=== PATIENT | male | born 1945 | race Caucasian/White ===

== ENCOUNTER → 2024-05-08 09:56 | Outpatient (BNVA) | payer MEDICARE, OTHER, SELFPAY | PROVIDERS: Visit Provider Internal Medicine | DX: E05.90 Thyrotoxicosis, unspecified without thyrotoxic crisis or storm (principal); E06.3 Autoimmune thyroiditis; I48.91 Unspecified atrial fibrillation; I10 Essential (primary) hypertension; F32.A Depression, unspecified; F41.9 Anxiety disorder, unspecified | CPT/HCPCS: 99204 ==

== ENCOUNTER → 2024-09-01 09:29 | Outpatient (BNVA) | payer MEDICARE, OTHER, SELFPAY | PROVIDERS: PCP Nurse Practitioner Family; Visit Provider Internal Medicine | DX: E06.3 Autoimmune thyroiditis (principal); I10 Essential (primary) hypertension; E05.90 Thyrotoxicosis, unspecified without thyrotoxic crisis or storm | CPT/HCPCS: 99214 ==

== ENCOUNTER 2024-10-20 15:57 | Inpatient (IN) | payer MEDICARE, OTHER, SELFPAY ==
[2024-10-20] VITALS (8 sets, daily range): BP systolic 134–147; BP diastolic 72–76; PULSE 70–80; RESP 14–18; TEMP 36.6–36.8; O2SAT 93–96; BMI 27.3
[2024-10-20 11:15] LABS: Hematocrit 38.0 % (37-53); Hemoglobin 12.90 g/dL (11.27-16.99); Mean Corpuscular HGB Conc 33.9 g/dL (30-55); Mean Corpuscular Hemoglobin 31.2 pg (27-33); Mean Corpuscular Volume 92.0 fl (82-101); Nucleated Red Blood Cells % 0 %; Platelet Count 212 10^3/cmm (157-399); Red Blood Count 4.13 10^6/uL (3.85-5.65); White Blood Count 8.24 10^3/uL (3.29-11.43)
--- NOTE | 2024-10-20 11:21 | ANES.PREANE2 ---
Pre-Anesthetic Assessment Height/Weight: Height 1.93 m Weight 102.058 kg Temp Pulse Resp BP Pulse Ox O2 Del Method 98.3 F 80 18 143/72 96 Room Air 10/20/24 11:08 10/20/24 11:08 10/20/24 11:08 10/20/24 11:08 10/20/24 11:08 10/20/24 11:08 Operation Date: 10/20/24 11:25 Proposed Procedures p Total Thyroidectomy(Bilateral) - David Garcia MD Familial anesthetic complications: None Was Beta Pito taken within 24 hours: N/A Was Clonidine taken within 24 hours: N/A Last intake: Intake Last Liquid Date 10/19/24 Last Liquid Time 23:23 Last Solid Date 10/19/24 Last Solid Time 23:23 Social No alcohol and No tobacco Exam alert, oriented x 3, clear to auscultation bilaterally and regular rate & rhythm Airway Mallampati: Class I Dentition: false CV/HEM Atrial Fibrillation and Coronary Artery Disease sick sinus syndrome w pacemaker and watchman Metabolic Thyroid Disease Anesthetic Plan ASA status: 3 Anesthesia: General Risk of > 500 ml blood loss (7ml/kg in children): No Medications/Allergies Home Medications ?Medication ?Instructions ?Recorded ?Confirmed ?Last Taken ?Type atorvastatin 40 mg tablet 40 mg PO EVERY OTHER DAY 05/08/24 10/20/24 10/19/24 History cyanocobalamin (vitamin B-12) 1,000 mcg IM Q21D 05/08/24 10/19/24 09/30/24 History 1,000 mcg/mL injection solution hydrochlorothiazide 12.5 mg tablet 12.5 mg PO DAILY 05/08/24 10/19/24 10/19/24 History lorazepam 0.5 mg tablet 0.5 mg PO DAILY PRN Anxiety 05/08/24 10/19/24 Unknown History losartan 50 mg tablet 50 mg PO DAILY 05/08/24 10/19/24 10/19/24 History diltiazem HCl 120 mg capsule,24 120 mg PO QPM 06/15/24 10/20/24 10/19/24 20:00 History hr,extended release methimazole 10 mg tablet 20 mg PO QPM 10/19/24 10/20/24 10/19/24 20:00 History sertraline 50 mg tablet 50 mg PO QPM 10/19/24 10/20/24 10/19/24 20:00 History Allergies Allergy/AdvReac Type Severity Reaction Status Date / Time Beta-Blockers Allergy ALGY-Anaphy Verified 10/20/24 10:50 (Beta-Adrenergic Bloc laxis codeine Allergy ADR-Confusi Verified 10/20/24 10:50 on Current Medications Generic Name Dose Route Start Last Admin Trade Name Freq PRN Reason Stop Dose Admin Sodium Chloride 1,000 mls @ 30 mls/hr 10/20/24 10:45 10/20/24 11:20 Sodium Chloride 0.9% IV 10/21/24 10:44 30 mls/hr .Q24H LAKEISHA Administration PFS Anesthesia Social History Smoking and tobacco/nicotine status: former use of tobacco/nicotine Data Anesthesia 10/20/24 11:00 Short CBC 10/20/24 Range/Units 11:00 WBC 8.24 (3.29-11.43) 10^3/uL Hgb 12.90 (11.27-16.99) g/dL Hct 38.0 (37-53) % MCV 92.0 (82-101) fl Plt Count 212 (157-399) 10^3/cmm Neut % (Auto) 68.9 % Neut # (Auto) 5.67 (1.8-7.7) 10^3/uL BMP 10/20/24 11:00 Sodium Cancelled Potassium Cancelled Chloride Cancelled Carbon Dioxide Cancelled BUN Cancelled Creatinine Cancelled Glucose Cancelled Calcium Cancelled
--- NOTE | 2024-10-20 11:29 | W.PM.OPSUD ---
Surgery/Procedure H&P Update DATE OF PROCEDURE: October 20, 2024 DATE H&P PERFORMED: 10/09/24 PLANNED PROCEDURE: Operation Date: 10/20/24 11:25 Proposed Procedures p Total Thyroidectomy(Bilateral) - David Garcia MD
[2024-10-20] MEDS: ceFAZolin 2,000 mg SDV 2000 MG IVP ×2 (11:41→20:32)
[2024-10-20 12:03] LABS: Anion Gap 13.2 (5-19); Blood Urea Nitrogen 31 mg/dL (8-23); Calcium 9.2 mg/dL (8.5-10.5); Carbon Dioxide 25 mmol/L (22-29); Chloride 103 mmol/L (98-107); Glucose 103 mg/dL (65-115); Osmolality Calculated 291 mOsm/kg (285-295); Potassium 4.2 mmol/L (3.5-5.1); Sodium 137 mmol/L (136-145)
[2024-10-20 12:06] LABS: Creatinine Clr Calc Pharmacy 50.0000
[2024-10-20] MEDS: lidocaine-epi 1% 20 mL INJ INJECTION (12:41)
[2024-10-20] MEDS: ceFAZolin 1,000 mg SDV 1000 MG IRRIGATION (12:42)
--- NOTE | 2024-10-20 14:48 | PC.NURSE ---
called and updated patient's regarding surgical progress at 0831
[2024-10-20] MEDS: thrombin 5,000 unit SDV 5000 UNIT XX (15:16)
[2024-10-20] MEDS: neomycin-poly-bacitracin oint 28 gm 1 APPLIC TOPICAL (15:41)
--- NOTE | 2024-10-20 16:01 | P.OP_ITS ---
Operative Report Date of procedure: October 20, 2024 Pre-op diagnosis: Hyperthyroidism Post-op diagnosis: Same Post-op findings: - Friable, inflamed bilateral thyroid lobes with dense bilateral adherence at Arben's ligament - Recurrent laryngeal nerves identified and preserved intact bilaterally - Right upper and two left parathyroid glands identified and preserved - O/W normal thyroid bed exam Procedure done: Total thyroidectomy Implants: None Specimens removed/disposition: Right and Left thyroid lobes Pathology: Right and Left thyroid lobes Surgeon: David Garcia Surgeon: David Garcia MD Brand Marketing Manager: Tanvir Brown Anesthesia: General Estimated blood loss (mL): 50 IV fluids (mL): 1,600 Urine output (mL): 150 Complications: None Findings: - Friable bilateral thyroid lobes - Dense attachment of each thyroid lobe Arben's ligament/RLN entry point - Bilateral Recurrent laryngeal nerves identified and preserved intact - One right and two left parathyroid glands identified and preserved in place - O/W normal surgical thyroid exam Condition: stable Disposition: ICU Brief History: 79 yo wm with a h/o hyperthyroidism who desires surgical therapy. Procedure: The patient was identified in the preoperative holding area and was taken to the operating room where he was placed on the Operating table in the supine position.Anesthesia was obtained with general endotracheal anesthesia after placing the nerve monitoring electrode on the endotracheal tube. A horizontal skin incision was marked out in the suprasternal area and was injected with local anesthesia. The nerve monitor was set up and adjusted and found to be functional. At this point the patient was prepped and draped in the usual sterile fashion. The incision was made with a 15 blade and was carried down through the subcutaneous tissues until the avascular midline was identified. The strap muscles were then in the midline and were retracted off of the thyroid gland. The Blythe retractor was placed in the wound and attention was turned to the thyroid isthmus. The thyroid isthmus was dissected off of the trachea and was divided in the midline with the harmonic scalpel. At this point a circumferential disection began around the right thyroid lobe while retracting the wound laterally. Attention was turned to the inferior pole which was dissected free from the underlying soft tissues in the tracheoesophageal groove. The thyroid gland was then rotated medially. The nerve monitoring hemostat was used to probe the carotid sheath and the vagus nerve was stimulated - the nerve monitoring circuit was found to be complete. The inferior pole and middle thyroid vein and vessels were dissected free from the surrounding tissues and ligated with ligaclips. As this dissection proceeded the inferior parathyroid gland on the right was identified and preserved in the thyrothymic horn although was not directly visualized. The dissection proceeded superiorly until the recurrent laryngeal nerve was identified both visually and electrically. The recurrent laryngeal nerve was preserved in place. The upper parathyroid was identified just deep and lateral to the entry point of the recurrent laryngeal nerve into the larynx. There was a dense attachment of the thyroid gland to Henning's ligament in the area of the entry point of the recurrent laryngeal nerve. A small cuff of thyroid tissue was left at this entry point to preserve the recurrent laryngeal nerve. The dissection proceeded superiorly. The superior pole vessels were individually dissected free and ligated with ligaclips. The right thyroid lobe was then retracted and removed from the thyroid bed with blunt dissection and bipolar cautery. The right thyroid bed was then inspected for hemostasis which was achieved with careful bipolar cautery. The wound was irrigated with copious amount of normal saline that was warm. Attention was then turned to the left thyroid bed where an identical procedure was performed after confirming that the recurrent laryngeal nerve was intact and at least 1 functional parathyroid had been identified and preserved in place. Once both sides were complete a drain was placed in the wound and the wound was closed with interrupted 4 Monocryl suture subcu and running 5-0 Prolene on skin. The wound was then cleaned and covered with triple antibiotic ointment. The procedure was then terminated and control of the patient was returned to anesthesia where he underwent uneventful reversal of anesthesia and extubation and was taken to the intensive care unit in stable condition. There were no operative or anesthetic complications.
[2024-10-20] MEDS: cyanocobalamin 1,000 mcg/mL SDV 1000 MCG IM (17:17)
[2024-10-20] MEDS: dilTIAZem ER (24HR) 120 mg Capsule PO (17:17)
[2024-10-20] MEDS: HYDROcodone-acetaminophen 5-325 mg Tablet 1 TAB PO ×2 (17:17→23:30)
--- NOTE | 2024-10-20 22:46 | PC.NURSE ---
Dr Garcia contacted Dr Garcia requested to be contacted with patient's PTH and calcium lab value, this nurse called to inform him these lab values would not be available until closer to midnight due to lab needing the reagant for the tests. Dr. Garcia verbalized understanding and also gave verbal order at this time for patient to be on a regular diet as well as Calcium with Vitamin D 600mg four times a day.
[2024-10-21 02:34] LABS: Calcium 8.5 mg/dL (8.5-10.5)
--- NOTE | 2024-10-21 04:56 | P.PN_ITS ---
Subjective 2 Subjective: 79 yo wm who is POD #1 s/p total thyroid ectomy for hyperthyroidism who is doing well by his report. The patient c/o moderate sore throat, but is able to swallow well. He has no other c/o. Medications: Reviewed: Yes Vitals/I&O/Wt Last Vital Signs Temp 97.9 F 10/20/24 16:30 Pulse 77 10/20/24 22:00 Resp 14 10/20/24 16:35 BP 134/75 10/20/24 16:35 Pulse Ox 93 10/20/24 16:35 O2 Del Method Room Air 10/20/24 16:35 10/20/24 10/20/24 10/21/24 14:59 22:59 06:59 Intake Total 1000 / 1000 33.333 / 1033.333 781.25 / 1814.583 Output Total 840 / 840 Balance 1000 / 1000 -806.667 / 193.333 781.25 / 974.583 Weight last 48 hrs Weight 111.584 kg Weight 102.058 kg Physical Exam 2 Const: COMMON NORMALS: no acute distress and patient oriented x3 GENERAL APPEARANCE: cooperative ORIENTATION/CONSCIOUSNESS: Yes oriented to person, Yes oriented to place and Yes oriented to time HENMT: COMMON NORMALS: normocephalic, atraumatic and Normal external nose present HEAD & SCALP: normocephalic and atraumatic FACE & SINUS: normal facial exam NOSE: Normal external nose present Eye: COMMON NORMALS: Equal, round and reactive pupils present, EOMs intact bilaterally and conjunctivae normal CONJUNCTIVA: Yes conjunctivae normal P UPIL: Yes Equal, round and reactive pupils present Neck/C-Spine: COMMON NORMALS: full ROM THYROID: other (Thyroid incision without swelling or redness) Chest: COMMONS NORMALS: normal inspection of the chest Resp: COMMON NORMALS: normal respiratory effort, No retractions and No use of accessory muscles Cardio: COMMON NORMALS: regular rate, regular rhythm and No murmurs present (Cardio) RATE: regular rate RHYTHM: regular rhythm GI: COMMON NORMALS: Normal to inspection, nondistended, normoactive bowel sounds present Extremity: COMMON NORMALS: normal to inspection Neuro: COMMON NORMALS: patient oriented x3 SENSORIUM/ORIENTATION: Yes oriented to person, Yes oriented to place and Yes oriented to time Urinary Catheter Management: Lee: Cath Placed During This Visit: yes Urinary Catheter Date of Insertion: 10/20/24 Urinary Catheter Time of Insertion: 12:00 Data 10/20/24 11:00 10/20/24 11:24 Other data: Intact PTH = 88 Ionized Serum Calcium Level = 1.2 A&P Assessment and plan 1. Hyperthyroidism: Impression: POD #1 s/p Total Thyroidectomy doing well with stable serum calcium and PTH levels Plan: - D/C to home - [place]on (5/325) tabs: take 1-2 tabs po Q5 hours prn pain, #25, NR - Synthroid (100mcg) tabs: take one tab po QD, #30, NR - OsCal + D (600-400) tabs: take 1 tab po QID X 7 days, then 1 tab po TID X 7 days, then one tab po BID X 7 days, then 1 tab po QD X 7 days, #70 tabs, NR - Discontinue Methimazole - Resume all other preop medications - Empty and record drain output once daily and prn - Regular diet - F/U in Dr. Garcia's office on 10/23/2024 - Notify Dr. Garcia for any problems PDMP PDMP Reviewed: Not Reviewed Attestations 2 Medical Necessity Statement*: The patient required overnight observation of his airway and serum calcium levels Coding Level of Care Code Acute Code for Chg Fwd Diagnoses Hyperthyroidism E05.90
--- NOTE | 2024-10-21 05:06 | PM.DCS ---
Discharge Providers Date of Admission: 10/20/24 15:57 Date of Discharge: October 21, 2024 Attending Provider at Admission: David Garcia MD Attending Provider at Discharge: David Garcia MD Consults: None Primary Care Provider: Tess Noonan APN Diagnoses at Discharge Discharge Diagnosis 1. Hyperthyroidism: Reason for Visit Reason for Visit: E05.00 Brief History: Total thyroidectomy Hospital Course Hospital Course The patient was admitted for total thyroidectomy on 20 October 2024. Please see the operative report for details of this procedure. The patient was admitted to the intensive care unit postoperatively for monitoring of his serum calcium levels and airway. The patient was found to have a an intact PTH level of 88 and ionized calcium of 1.2 overnight. Patient had moderate pain that was well-controlled with oral pain medications and was taking p.o. well on postoperative day #1. With a stable calcium level and intact PTH level, the patient was discharged on postoperative day number 1 in the morning in stable condition. The patient was instructed to record his drain output and resume all preop medications except for methimazole. Patient was given prescriptions for [place]ne 07/18/2024 for pain control, 100 mcg Synthroid tablets to take daily, and Os-Michael plus D (600-400) to take in the postoperative period. The patient was to follow-up in Dr. Hubbard's office on 23 October for potential drain removal and review of his condition at that point. Physical Exam Const: COMMON NORMALS: no acute distress, average body habitus and patient oriented x3 HENMT: COMMON NORMALS: normocephalic, atraumatic and Normal external nose present HEAD & SCALP: normocephalic and atraumatic FACE & SINUS: normal facial exam NOSE: Normal external nose present Eye: COMMON NORMALS: EOMs intact bilaterally and conjunctivae normal CONJUNCTIVA: Yes conjunctivae normal Neck/C-Spine: COMMON NORMALS: no lymphadenopathy and Thyroid normal (The thyroid incision is intact without swelling or redness) THYROID: Thyroid normal (The thyroid incision is intact without swelling or redness) Chest: COMMONS NORMALS: normal inspection of the chest Resp: COMMON NORMALS: normal respiratory effort, No retractions, No use of accessory muscles and clear to auscultation bilaterally AUSCULTATION: clear to auscultation bilaterally Cardio: COMMON NORMALS: regular rate, regular rhythm and No murmurs present (Cardio) RATE: regular rate RHYTHM: regular rhythm GI: COMMON NORMALS: Normal to inspection, nondistended, normoactive bowel sounds present Extremity: COMMON NORMALS: normal to inspection Neuro: COMMON NORMALS: patient oriented x3 Urinary Catheter Management: Lee: Cath Placed During This Visit: yes Urinary Catheter Date of Insertion: 10/20/24 Urinary Catheter Time of Insertion: 12:00 Discharge Data Studies Completed and Pending Pending at discharge Category Date Time Status Ionized Calcium Stat Lab 10/20/24 16:29 Ordered Pathology: Surgical [PTH] Routine Pth 10/20/24 15:29 Received Laboratory Results WBC 8.24 10^3/uL (3.29-11.43) 10/20/24 11:00 RBC 4.13 10^6/uL (3.85-5.65) 10/20/24 11:00 Hgb 12.90 g/dL (11.27-16.99) 10/20/24 11:00 Hct 38.0 % (37-53) 10/20/24 11:00 MCV 92.0 fl (82-101) 10/20/24 11:00 MCH 31.2 pg (27-33) 10/20/24 11:00 MCHC 33.9 g/dL (30-55) 10/20/24 11:00 RDW 13.2 % (12.1-15.1) 10/20/24 11:00 Plt Count 212 10^3/cmm (157-399) 10/20/24 11:00 MPV 8.7 fL (7.4-10.4) 10/20/24 11:00 Neut % (Auto) 68.9 % 10/20/24 11:00 Lymph % (Auto) 20.6 % 10/20/24 11:00 [place] % (Auto) 8.4 % 10/20/24 11:00 Eos % (Auto) 1.2 % 10/20/24 11:00 Baso % (Auto) 0.7 % 10/20/24 11:00 Neut # (Auto) 5.67 10^3/uL (1.8-7.7) 10/20/24 11:00 Lymph # (Auto) 1.7 10^3/uL (0.8-4.8) 10/20/24 11:00 [place] # (Auto) 0.7 10^3/uL (0.2-0.9) 10/20/24 11:00 Eos # (Auto) 0.1 10^3/uL (0.0-0.8) 10/20/24 11:00 Baso # (Auto) 0.1 10^3/uL (0.0-0.1) 10/20/24 11:00 Nucleated RBC % (auto) 0 % 10/20/24 11:00 Nucleated RBCs # 0.0 /100WBC 10/20/24 11:00 Sodium 137 mmol/L (136-145) 10/20/24 11:24 Potassium 4.2 mmol/L (3.5-5.1) 10/20/24 11:24 Chloride 103 mmol/L (98-107) 10/20/24 11:24 Carbon Dioxide 25 mmol/L (22-29) 10/20/24 11:24 Anion Gap 13.2 (5-19) 10/20/24 11:24 BUN 31 mg/dL (8-23) H 10/20/24 11:24 Creatinine 1.6 mg/dL (0.7-1.2) H 10/20/24 11:24 GFR Calculation Not Reportable 10/20/24 11:24 Glucose 103 mg/dL (65-115) 10/20/24 11:24 Calculated Osmolality 291 mOsm/kg (285-295) 10/20/24 11:24 Calcium 9.2 mg/dL (8.5-10.5) 10/20/24 11:24 Ionized Calcium Haylee 1.2 mmol/L (1.1-1.4) 10/21/24 04:17 PTH Intact 88.0 pg/mL (15-65) H 10/20/24 18:28 Calcium (PTH Intact) 8.5 mg/dL (8.5-10.5) 10/20/24 18:28 Procedures Performed Total thyroidectomy Vitals Last Vital Signs Temp 97.9 F 10/20/24 16:30 Pulse 77 10/20/24 22:00 Resp 14 10/20/24 16:35 BP 134/75 10/20/24 16:35 Pulse Ox 93 10/20/24 16:35 O2 Del Method Room Air 10/20/24 16:35 Discharge Plan Discharge Patient Disposition: Home Condition: Stable Prescriptions: New hydrocodone-acetaminophen 5-325 mg Tablet 1 tab PO Q6H PRN (Reason: Moderate Pain) Qty: 25 0RF atorvastatin 40 mg Tablet 40 mg PO EVERY OTHER DAY Qty: 30 0RF diltiazem HCl 120 mg Capsule,Extended Release 24hr 120 mg PO QPM Qty: 30 0RF hydrochlorothiazide 25 mg Tablet 12.5 mg PO DAILY Qty: 30 0RF losartan 50 mg Tablet 50 mg PO DAILY Qty: 30 0RF calcium carbonate-vitamin D3 600 mg-10 mcg (400 unit) Tablet 1 tab PO QID Qty: 70 0RF levothyroxine [Synthroid] 100 mcg tablet 100 mcg PO DAILY Qty: 30 5RF cyanocobalamin (vitamin B-12) 1,000 mcg/mL Solution 1,000 mcg IM Q21D Qty: 30 0RF sertraline 50 mg Tablet 50 mg PO QPM Qty: 30 0RF lorazepam 0.5 mg Tablet 0.5 mg PO DAILY PRN (Reason: Anxiety) Qty: 30 0RF Continued hydrochlorothiazide 12.5 mg tablet 12.5 mg PO DAILY atorvastatin 40 mg tablet 40 mg PO EVERY OTHER DAY losartan 50 mg tablet 50 mg PO DAILY cyanocobalamin (vitamin B-12) 1,000 mcg/mL solution 1,000 mcg IM Q21D lorazepam 0.5 mg tablet 0.5 mg PO DAILY PRN (Reason: Anxiety) diltiazem HCl 120 mg capsule,extended release 24 hr 120 mg PO QPM sertraline 50 mg Tablet 50 mg PO QPM Discontinued methimazole 10 mg tablet 20 mg PO QPM Patient Instructions: Acute Wound Care (DC), Opioid Safety, Post Anesthesia Care, Patient Portal & Neena Instructions Coding Level of Care Code Acute Code for Chg Fwd Diagnoses Hyperthyroidism E05.90
[2024-10-21] MEDS: calcium carb-vit d 600mg/400unit 1 Tablet 1 EACH PO (05:07)
[2024-10-21] MEDS: ceFAZolin 2,000 mg SDV 2000 MG IVP (05:09)
[2024-10-21 05:56] VITALS: PULSE 60
[2024-10-21 06:37] VITALS: BP 94/56; PULSE 78; RESP 16; TEMP 36.4; O2SAT 100
== END 2024-10-21 06:42 | disposition home or self-care (01) | DRG 627 ==
LOC: ICU 15:57
PROVIDERS: Anesthesiology; Admitting Provider Specialist; PCP Nurse Practitioner Family; Visit Provider Specialist
PROC: 0GTG0ZZ Resection of Left Thyroid Gland Lobe, Open Approach (ICD-10-PCS; CPT 60240; principal; 2024-10-20 11:05)
DX: E05.90 Thyrotoxicosis, unspecified without thyrotoxic crisis or storm (principal); E21.3 Hyperparathyroidism, unspecified; I10 Essential (primary) hypertension; I48.91 Unspecified atrial fibrillation; E78.5 Hyperlipidemia, unspecified; I49.5 Sick sinus syndrome; F41.9 Anxiety disorder, unspecified; F43.10 Post-traumatic stress disorder, unspecified; Z95.0 Presence of cardiac pacemaker; Z79.899 Other long term (current) drug therapy; Z88.5 Allergy status to narcotic agent; Z88.8 Allergy status to other drugs, medicaments and biological substances; Z87.891 Personal history of nicotine dependence
CPT/HCPCS: 36415; 51702; 80048; 82310; 82330; 83970; 85025; 88307; 96372; J0131; J0169; J0330; J0690; J1100; J1171; J2405; J2704; J3010; J3420; J3490; J7030; J7120; J9999

== ENCOUNTER → 2024-12-29 10:05 | Outpatient (BNVA) | payer MEDICARE, OTHER, SELFPAY | PROVIDERS: PCP Nurse Practitioner Family; Visit Provider Internal Medicine | DX: I48.91 Unspecified atrial fibrillation (principal); E05.90 Thyrotoxicosis, unspecified without thyrotoxic crisis or storm; I10 Essential (primary) hypertension; E06.3 Autoimmune thyroiditis; F32.A Depression, unspecified; F41.9 Anxiety disorder, unspecified; Z98.890 Other specified postprocedural states | CPT/HCPCS: 99214 ==